=== PATIENT | female | born 1965 | race Caucasian/White ===

== ENCOUNTER → 2023-05-16 12:01 | Outpatient (CLI) | payer OTHER, SELFPAY ==
--- NOTE | ~2023-05-16 | XR_ITS ---
Left Shoulder Technique: AP and axillary views were obtained. Clinical History: Unspecified disorder of the synovium and tendon Findings: No fracture or dislocation is seen. Osseous alignment is anatomic. There is mild AC joint d egenerative change. Glenohumeral joint is intact. Soft tissues are unremarkable. Impression: Mild AC joint degenerative change. Reviewed, dictated and finalized at location . Impression: Mild AC joint degenerative change.
== END ==
PROVIDERS: PCP Family Medicine Sports Medicine; Visit Provider Family Medicine Sports Medicine
DX: M67.912 Unspecified disorder of synovium and tendon, left shoulder (principal); M19.012 Primary osteoarthritis, left shoulder
CPT/HCPCS: 73030

== ENCOUNTER → 2023-05-25 09:19 | Outpatient (CLI) | payer OTHER, SELFPAY ==
--- NOTE | ~2023-05-25 | MR_ITS ---
MRI of the left shoulder Technique: Axial proton-density fat-sat images, coronal proton density fat-sat and T2 fat-sat images, and sagittal T1-weighted and T2 fat-sat images were acquired. Clinical History: Unspecified disorder of synovium and tendon Findings: There is mild AC joint degenerative change, with small subacromial spur. Coracoclavicular, coracoacromial, and coracohumeral ligaments are intact. Supraspinatus and infraspinatus tendons are intact, without partial or full-thickness tear. There is moderate tendinosis of the distal, anterior supraspinatus tendon. Subscapularis tendon demonstrates l ow-grade linear interstitial tear with moderate to severe distal tendinosis. Tendon of long head of t he biceps is intact. No labral tear evident. Inferior glenohumeral ligament is intact. There is a small glenohumeral joint effusion. No degenerati ve change of the glenohumeral joint. No significant fluid distention of the subacromial/subdeltoid bu rsa. There is marrow edema at the lesser tuberosity of the humerus. No muscle atrophy or edema. Impression: Low-grade linear interstitial tear of the subscapularis tendinosis, with background rotator cuff tend inosis, as detailed above. Mild AC joint degenerative change. Marrow edema at the lesser tuberosity humerus. This could be reactive/degenerative in nature, versus possibly bone contusion. Reviewed, dictated and finalized at [facility]. Impression: Low-grade linear interstitial tear of the subscapularis tendinosis, with backgr ound rotator cuff tendinosis, as detailed above. Mild AC joint degenerative change. Marrow edema at the lesser tuberosity humerus. This could be reactive/degenerat jenelle in nature, versus possibly bone contusion.
== END ==
PROVIDERS: PCP Family Medicine Sports Medicine; Visit Provider Family Medicine Sports Medicine
DX: M67.912 Unspecified disorder of synovium and tendon, left shoulder (principal); M79.89 Other specified soft tissue disorders
CPT/HCPCS: 73221

== ENCOUNTER 2024-05-10 15:02 | Outpatient (CLI) | payer OTHER, SELFPAY ==
--- NOTE | ~2024-05-10 | MM_ITS ---
EXAMINATION: MM screening [facility] BI w jhoana HISTORY: Screening TECHNIQUE: Craniocaudal and mediolateral oblique 3-D tomosynthesis images were obtained and synthetic 2-D images were generated. CAD analysis was submitted and interpreted. COMPARISON: No prior mammogram is available for comparison at this institution. BREAST PARENCHYMAL COMPOSITION: Not dense: There are scattered areas of fibroglandular density. FINDINGS: There is no evidence of suspicious mass, calcification, or architectural distortion to sugg est malignancy in either breast. There has been no suspicious interval change. IMPRESSION: 1. No mammographic evidence of malignancy. 2. Recommend routine screening mammography in one year. BI-RADS Category 1: Negative Reviewed, dictated and finalized at location B.
== END 2024-05-10 15:03 | disposition home or self-care (01) ==
PROVIDERS: PCP Family Medicine Sports Medicine; Visit Provider Student in an Organized Health Care Education/Training Program
DX: Z12.31 Encounter for screening mammogram for malignant neoplasm of breast (principal)
CPT/HCPCS: 77063; 77067

== ENCOUNTER 2024-08-02 14:36 | Outpatient (CLI) | payer OTHER, SELFPAY ==
--- NOTE | ~2024-08-02 | XR_ITS ---
XR hip LT min 2V Ordering provider: Enrique Kruger, History: . L sided lbp with L sided sciatica . Comparison: None. FINDINGS: BONES: No acute fracture or dislocation. HIP JOINT SPACES: Severe osteoarthritic changes of the left hip. PUBIC SYMPHYSIS: Normal. SOFT TISSUES: Normal. IMPRESSION: No acute osseous abnormality pelvis and left hip. Severe osteoarthritic changes of the left hip. Reviewed, dictated and finalized at location A. OSIVE TECHNICIAN
== END 2024-08-02 14:37 | disposition home or self-care (01) ==
PROVIDERS: PCP Family Medicine Sports Medicine; Visit Provider Family Medicine
DX: M16.12 Unilateral primary osteoarthritis, left hip (principal); M54.42 Lumbago with sciatica, left side
CPT/HCPCS: 73502

== ENCOUNTER 2025-05-16 14:47 | Outpatient (CLI) | payer OTHER, SELFPAY ==
--- NOTE | ~2025-05-16 | MM_ITS ---
EXAMINATION: MM screening [facility] BI w jhoana HISTORY: Screening TECHNIQUE: Craniocaudal and mediolateral oblique 3-D tomosynthesis images were obtained and synthetic 2-D images were generated. CAD analysis was submitted and interpreted. COMPARISON: 05/10/2024 BREAST PARENCHYMAL COMPOSITION: There are scattered areas of fibroglandular density. FINDINGS: There is no evidence of suspicious mass, calcification, or architectural distortion to suggest malignancy. There has been no suspicious interval change. IMPRESSION: 1. No mammographic evidence of malignancy. Recommend routine screening mammography in one year. BI-RADS Category 2: Benign finding(s) Reviewed, dictated and finalized at location Q. IMPRESSION: 1. No mammographic evidence of malignancy. Recommend routine screening mammogra phy in one year. BI-RADS Category 2: Benign finding(s)
== END 2025-05-16 14:48 | disposition home or self-care (01) ==
LOC: MICIMG 14:48
PROVIDERS: PCP Family Medicine Sports Medicine; Visit Provider Student in an Organized Health Care Education/Training Program
DX: Z12.31 Encounter for screening mammogram for malignant neoplasm of breast (principal)
CPT/HCPCS: 77063; 77067